=== PATIENT | female | born 1940 | race Asian ===

== ENCOUNTER 2018-04-04 05:39 | Day surgery (SDC) | payer MEDICARE ==
--- NOTE | 2018-04-03 12:14 | PREOPHP ---
DATE OF ADMISSION: 04/04/2018 HISTORY OF PRESENT ILLNESS: This 77-year-old patient is admitted for elective cataract surgery of th e right eye. The patient has had progressive deterioration of vision in both eyes over the past year 's time without prior history of eye disease or injury. PAST MEDICAL HISTORY: The patient's systemic history is positive for hypertension and hypercholester olemia. CURRENT MEDICATIONS: Include: 1. Amlodipine. 2. Atorvastatin. ALLERGIES: THERE ARE NO KNOWN ALLERGIES. PHYSICAL EXAMINATION: The visual acuity is 20/200 in each eye. Slit lamp examination reveals anteri or cortical and posterior subcapsular cataract changes in both eyes. Applanation tonometry is 16 mmH g. Examination of the retina is within normal limits. DIAGNOSIS: Combined cataract, both eyes. PLAN: Cataract extraction with lens implant, right eye. The risks and alternatives to the surgery h ave been discussed with the patient as well as to hope for improvement of visual acuity leading to gr eater ability to perform activities of daily living. The patient understands this and agrees to proc eed with surgery. Dictated By: ELADIO BARBOZA/WALTER Conf#: [id number] DID#: [id number]
[~2018-04-04] VITALS: Ht 152.4 cm; Wt 63.2 kg
[2018-04-04] VITALS (9 sets, daily range): BP systolic 100–138; BP diastolic 50–62; PULSE 56–63; RESP 13–18; Ht 152.4 cm; Wt 63.2 kg
[2018-04-04] MEDS ORDERED: CYCLOPENTOLATE/PHENYLEPH 2 ML OPH OPER SCH (06:00)
[2018-04-04] MEDS ORDERED: SOD CHLORIDE 0.9% 1,000 ML IV SCH (06:00)
[2018-04-04] MEDS ORDERED: TROPICAMIDE 1% 15 ML OPH OPER SCH (06:00)
[2018-04-04] MEDS ORDERED: DICLOFENAC 0.1% 2.5 ML OPH OPER SCH (06:00)
[2018-04-04] MEDS ORDERED: MOXIFLOXACIN 0.5% 3 ML OPH OPER SCH (06:00)
[2018-04-04] MEDS ORDERED: TETRACAINE 0.5% 4 ML OPH ONE (06:54)
[2018-04-04] MEDS ORDERED: CARBACHOL 0.01% 1.5 ML OPH INJ ONE (06:54)
[2018-04-04] MEDS ORDERED: LIDOCAINE 4% (MPF) 5 ML INJ ONE (06:54)
[2018-04-04] MEDS ORDERED: CEFAZOLIN 1 GM INJ ONE (06:54)
[2018-04-04] MEDS ORDERED: MOXIFLOXACIN 0.5% 3 ML OPH ONE (06:54)
[2018-04-04] MEDS ORDERED: EPINEPHrine 1 MG INJ ONE (06:55)
[2018-04-04] MEDS ORDERED: DEXAMETHASONE 4 MG/ML 1 ML INJ ONE (06:55)
[2018-04-04] MEDS ORDERED: NA HYALURONATE/CHONDROITIN 0.5 ML SYG ONE (06:55)
[2018-04-04] MEDS ORDERED: GENTAMICIN 80 MG INJ ONE (06:55)
[2018-04-04] MEDS ORDERED: ATOR10TA65 PO (06:58)
[2018-04-04] MEDS ORDERED: ASPI81TA52 PO (06:58)
[2018-04-04] MEDS ORDERED: AMLO-147 PO (06:58)
[2018-04-04] MEDS ORDERED: SODIUM CL BACTERIOSTATIC 30 ML INJ ONE (07:20)
--- NOTE | 2018-04-04 07:20 | PREAC ---
Date/Time of Note Date/Time of Note DATE: 04/04/18 TIME: 07:19 Anesthesia Eval and Record Evaluation Time Pre-Procedure Interview DATE: 04/04/18 TIME: 07:19 Age 77 Sex female NPO: 8 hrs Preoperative diagnosis Right Eye Cataract Planned procedure Right Eye Excision of cataract and IOL Implant Past Medical History Past Medical History: Includes Cardio: HTN, Dyslipidemia Surgery & Anesthesia Issues No known issue Meds Anticoagulation: No Beta Alee within 24 hr: No Reason Beta Alee not given: Pt. not on B-Alee Reported Medications Aspirin (Low Dose Aspirin) 81 Mg Tablet.dr, 81 MG PO DAILY, #30 TAB 04/04/18 Atorvastatin Calcium (Atorvastatin Calcium) 10 Mg Tablet, 5 MG PO QHS, #30 TAB 04/04/18 Amlodipine Besylate* (Amlodipine Besylate*) 10 Mg Tablet, 10 MG PO DAILY, #30 TAB 04/04/18 Current Medications Diclofenac Sodium (Voltaren 0.1%) 1 drop Q5 MIN X 3 OPER Last administered on 04/04/18at 06:15; Admin Dose 1 DROP; Start 04/04/18 at 06:00 Tropicamide (Mydriacyl 1%) 1 drop Q5 MIN X3 OPER Last administered on 04/04/18at 06:14; Admin Dose 1 DROP; Start 04/04/18 at 06:00 Moxifloxacin HCl (Vigamox) 1 drop Q5 MIN X 3 OPER Last administered on 04/04/18at 06:14; Admin Dose 1 DROP; Start 04/04/18 at 06:00 Cyclopentolate/ Phenylephrine (Cyclomydril Oph 2 ml) 1 drop Q5 MIN X 3 OPER Last administered on 04/04/18at 06:15; Admin Dose 1 DROP; Start 04/04/18 at 06:00 Sodium Chloride 1,000 ml @ 25 mls/hr Q24H IV ; Start 04/04/18 at 06:00 Meds reviewed: Yes Allergies Coded Allergies: No Known Allergy (Unverified , 04/04/18) Allergies Reviewed: Yes Labs/Studies Labs Reviewed: Reviewed by anesthesiologist test: N/A Studies: ECG (n/a), CXR (n/a) Pre-procedure Exam Last vitals Vital Signs Date Temp Pulse Resp B/P (MAP) Pulse Ox O2 O2 Flow FiO2 Time Delivery Rate 04/04/18 98.3 61 18 138/62 95 Room Air 06:33 (87) Airway: Adequate mouth opening, Adequate thyromental dist Mallampati: Mallampati II Teeth: Normal Lung: Normal Heart: Normal ASA Physical Status ASA physical status: 2 Emergency: None Planned Anesthetic General/MAC: MAC Planned Pain Management Parenteral pain med Pre-operative Attestations Prior to commencing anesthesia and surgery, the patient was re-evaluated, there was verification of: *The patient's identity *The results of appropriate recent lab work and preoperative vital signs *The above evaluation not changing prior to induction *Anesthetic plan, risk benefits, alternative and complications discussed with patient/family; questions answered; patient/family understands, accepts and wishes to proceed. BHARGAV CALDERON MD Apr 04, 2018 07:20
[2018-04-04] MEDS ORDERED: HYDROmorphONE 1 MG/5 ML IV SYRINGE IV PRN ×2 (07:30)
[2018-04-04] MEDS ORDERED: hydrALAzine 20 MG INJ IV PRN (07:30)
[2018-04-04] MEDS ORDERED: FENTAnyl 50 MCG/ML VIAL IV PRN ×2 (07:30)
[2018-04-04] MEDS ORDERED: ONDANSETRON 4 MG INJ IV PRN (07:30)
[2018-04-04] MEDS ORDERED: METOCLOPRAMIDE 10 MG INJ IV PRN (07:30)
[2018-04-04] MEDS ORDERED: LABETALOL HCL 20MG INJ IV PRN (07:30)
[2018-04-04] MEDS ORDERED: EPHEDrine SULFATE 50 MG/5 ML SYG IV PRN (07:30)
[2018-04-04] MEDS ORDERED: ONDANSETRON 4 MG INJ ONE (07:43)
[2018-04-04] MEDS ORDERED: METOCLOPRAMIDE 10 MG INJ ONE (07:43)
[2018-04-04] MEDS ORDERED: PROPOFOL 20 ML ONE (07:43)
--- NOTE | 2018-04-04 08:14 | NUR ---
PACU: Received patient in pacu via [facility] s/p right eye cataract ext AAOX3 vss HOB @ semi beauchamp position, breathing with ease right eye dressing dry & intact, denies pain, will continue to monitor.
--- NOTE | 2018-04-04 08:18 | SIPON ---
Date/Time of Note Date/Time of Note DATE: 04/04/18 TIME: 08:17 Operative Report Preoperative Diagnosis nuclear sclerotic and posterior subcapsular cataract od Postoperative Diagnosis same Operation/Procedure Performed cataract extraction with lens implant od Surgeon eladio abraham statistical assistant none Anesthesia: MAC Estimated blood loss: none Transfusion Required none Specimen none Grafts/Implants posterior chamber lens implant Complications none ELADIO ABRAHAM MD Apr 04, 2018 08:18
--- NOTE | 2018-04-04 08:23 | PAC ---
Date/Time of Note Date/Time of Note DATE: 04/04/18 TIME: 08:23 Post-Anesthesia Notes Post-Anesthesia Note Last documented vital signs Vital Signs Date Temp Pulse Resp B/P (MAP) Pulse Ox O2 O2 Flow FiO2 Time Delivery Rate 04/04/18 98.3 61 18 138/62 95 Room Air 08:33 (87) Activity: WNL Respiratory function: WNL Cardiovascular function: WNL Mental status: Baseline Pain reasonably controlled: Yes Hydration appropriate: Yes Nausea/Vomiting absent: Yes BHARGAV CALDERON MD Apr 04, 2018 08:23
--- NOTE | 2018-04-04 08:45 | OPR ---
DATE OF OPERATION: 04/04/2018 PREOPERATIVE DIAGNOSIS: Nuclear sclerotic and posterior subcapsular cataract, right eye. POSTOPERATIVE DIAGNOSIS: Nuclear sclerotic and posterior subcapsular cataract, right eye. OPERATION PERFORMED: Cataract extraction with lens implant, right eye. SURGEON: Eladio Molina MD ANESTHESIOLOGIST: Reagan Richardson MD ANESTHESIA: Local standby. OPERATION: Phacoemulsification with posterior chamber intraocular lens implant, right eye. PROCEDURE: The patient was brought to the operating room and placed on the table with an IV in place and the patient attached to an gambling monitor. Oxygen was given via face mask. After some intravenous sedation was administered, local anesthesia was given using Xylocaine 2% with epinephrine, mixed with Marcaine 0.5%. This was given in a lid block and retrobulbar injection. The p atient was then prepped and draped in the usual sterile manner. A wire lid speculum was inserted between the lids of the right eye. A Superblade was used to enter th e anterior chamber at the corneoscleral limbus at the 10:30 o'clock position. A separate incision was made using a 3.0-mm keratome which entered the corneoscleral junction at the 12 o'clock position. Th rough this 3-mm opening, an irrigating cystotome was introduced into the anterior chamber. The chambe r was filled with Viscoat and an anterior capsulotomy was performed. Balanced salt solution was then used for hydrodissection of the lens. A phacoemulsification handpiece was then brought into the fiel d and introduced into the anterior chamber. The lens nucleus was emulsified using a deep groove and c racking the nucleus into quadrants. Following this, each quadrant was aspirated and emulsified at the pupillary margin. After this was completed, the irrigation/aspiration handpiece was brought to the field, introduced in to the posterior chamber, and the lens cortical material was removed. When this was completed, additi onal Viscoat was injected into the anterior and posterior chambers. The 3-mm opening had its internal lips enlarged, and then the posterior chamber intraocular lens bia uring 17.0 diopters ([employer] Model LI61AO) was then injected into the posterior c hamber using the lens injector system. After the leading haptic was introduced into the capsular bag and the lens optic was present in the center of the eye, the injector was removed and the trailing guaman ptic was grasped with non-toothed forceps and introduced into the capsular fold superiorly. A Sinskey hook was then used to rotate the intraocular lens so that the lips were oriented in the horizontal m eridian. One 10-0 nylon suture was placed across the wound. Prior to tying, the irrigation/aspiration handpiece was reintroduced into the anterior chamber to rem ove the Viscoat. Miochol was instilled to constrict the pupil, and then the 10-0 nylon suture was tie d. The ends were cut short and then the knot was buried. Then, 0.5 mL of dexamethasone and 0.5 mL of Ancef were injected into the sub-Tenon space in the infer ior fornix. Ciloxan drops were then placed on the surface of the eye. The speculum was removed and a patch was applied. The patient then left the operating room in satisfactory condition. Dictated By: ELADIO BARBOZA/WALTER Conf#: [id number] DID#: [id number]
--- NOTE | 2018-04-04 08:55 | NUR ---
PACU: Transferred patient to [facility] via [facility] AAOX4 vss HOB @ semi beauchamp position, breathing with ease right eye dressing dry & intact, denies pain, report given to KVNG Yoder
--- NOTE | 2018-04-04 09:27 | NUR ---
THE PT ALERT AND ORIENTED VITAL SIGNS WITHIN NORMAL LIMITS, NO PAIN OR DISCOMFORT REPORTED D/C INSTRUCTIONS PROVIDED TO PT AND FAMILY, VERBALIZED UNDERSTANDING AND READINESS TO GO HOME INCISION SITE: DRY CLEAN AND INTACT
== END 2018-04-04 10:10 | disposition home or self-care (01) ==
LOC: SDS 05:39
PROVIDERS: ATTEND Ophthalmology
DX: H25.11 Age-related nuclear cataract, right eye (principal); I10 Essential (primary) hypertension; E78.5 Hyperlipidemia, unspecified
CPT/HCPCS: 66984; J0171; J0690; J1100; J1580; J2405; J2765; V2632